=== PATIENT | male | born 1990 | race Two or more races ===

== ENCOUNTER 2021-02-20 05:40 | Day surgery (SDC) | payer OTHER ==
[2021-02-20] MEDS ORDERED: DUI500 PO (11:52)
[2021-02-20] MEDS ORDERED: OXYC1TAB9 PO (11:52)
== END 2021-02-20 14:45 | disposition home or self-care (01) ==
LOC: CIR.AMB 05:40 → EDSEX 07:00 → CIR.AMB 07:00
PROVIDERS: ATTEND Orthopaedic Surgery Sports Medicine
DX: S43.315A Dislocation of left scapula, initial encounter (principal); Z20.822 Contact with and (suspected) exposure to COVID-19
CPT/HCPCS: 23470; 23120; 15271; Q4107; C1776

== ENCOUNTER 2021-03-17 12:42 | Outpatient (CLI) | payer OTHER ==
[~2021-03-17 12:42] MED LIST: DUI500 PO; OXYC1TAB9 PO
== END 2021-03-17 12:51 | disposition home or self-care (01) ==
LOC: RAD 12:42
PROVIDERS: ATTEND Orthopaedic Surgery Sports Medicine
DX: S43.102A Unspecified dislocation of left acromioclavicular joint, initial encounter (principal)

== ENCOUNTER 2022-04-17 11:24 | Outpatient (CLI) | payer OTHER | END 2022-04-17 11:26 | disposition home or self-care (01) | LOC: RAD 11:24 | PROVIDERS: ATTEND Orthopaedic Surgery Sports Medicine | DX: S42.002A Fracture of unspecified part of left clavicle, initial encounter for closed fracture (principal) ==

== ENCOUNTER → 2022-05-30 | Outpatient (CLI) | payer OTHER | END | disposition home or self-care (01) | LOC: RAD 13:25 | PROVIDERS: ATTEND Orthopaedic Surgery Sports Medicine | DX: S42.002A Fracture of unspecified part of left clavicle, initial encounter for closed fracture (principal) ==